=== PATIENT | female | born 1995 | race Hispanic/Latino ===

== ENCOUNTER 2019-03-09 19:10 | Observation (INO) | payer BC ==
[2019-03-09] MEDS ORDERED: Tdap Vaccine 0.5 ml Vial (10-64 yrs) IM ONE ×2 (19:22→19:30)
[2019-03-09] MEDS ORDERED: Povidone Iodine Topical 10% Sol ONE (19:38)
--- NOTE | 2019-03-09 20:08 | ED PDOC ---
HPI: Wound Care - HPI Time Seen by Provider: 03/09/19 19:22 Chief Complaint (Nursing): Abnormal Skin Integrity Chief Complaint (Provider): Abnormal skin integrity History Per: Patient Exam Limitations: no limitations Onset/Duration Of Symptoms: Mins (just prior to arrival) Current Symptoms Are (Timing): Still Present Location Of Injury: Left: Hand Severity: Moderate Additional Complaint(s): 23 year old female with no pertinent past medical history presents to the ED for an evaluation of a left hand laceration that occurred yesterday. Patient states she fell down and landed on a piece of glass that broke upon impact, sustaining a laceration to the left thumb and index finger. Reports having numbness to the L 2nd digit. Denies weakness, foreign body sensation. Tetanus not up to date. PMD: None provided. Past Medical History Reviewed: Historical Data, Nursing Documentation, Vital Signs Vital Signs: Last Vital Signs Temp 98.7 F 03/09/19 19:17 Pulse 64 03/09/19 19:17 Resp 16 03/09/19 19:17 BP 132/80 03/09/19 19:17 Pulse Ox 100 03/09/19 19:17 ASH Report Viewed: Yes - Medical History PMH: No Chronic Diseases - Family History Family History: States: No Known Family Hx - Immunization History Hx Tetanus Toxoid Vaccination: No - Allergies Allergies/Adverse Reactions: Allergies Allergy/AdvReac Type Severity Reaction Status Date / Time No Known Allergies Allergy Verified 03/09/19 19:20 Review of Systems ROS Statement: Except As Marked, All Systems Reviewed And Found Negative Musculoskeletal: Positive for: Other (left hand laceration. (-) foreign body sensation) Neurological: Negative for: Numbness ((-) tingling. ) Physical Exam - Reviewed Nursing Documentation Reviewed: Yes Vital Signs Reviewed: Yes - Physical Exam Appears: Positive for: Well, Non-toxic, No Acute Distress Head Exam: Positive for: ATRAUMATIC, NORMOCEPHALIC Skin: Positive for: Normal Color, Warm, Dry Eye Exam: Positive for: EOMI, Normal appearance, PERRL Neck: Positive for: Normal, Painless ROM, Supple Cardiovascular/Chest: Positive for: Regular Rate, Rhythm Respiratory: Positive for: Normal Breath Sounds Pulses-Radial (L): 2+ Pulses-Radial (R): 2+ Gastrointestinal/Abdominal: Positive for: Soft. Negative for: Tenderness Extremity: Positive for: Other (to the palmar surface of the left second digit: 1.5x cm jagged laceration with surrounding edema. limited range of motion secondary to pain. capillary refill <2 seconds. (-) palpable foreign body; L thumb with superficial flap laceration on distal phalanx) Neurological/Psych: Positive for: Awake, Alert, Oriented (3x) - Laboratory Results Result Diagrams: 03/09/19 20:50 - ECG O2 Sat by Pulse Oximetry: 100 (RA) Pulse Ox Interpretation: Normal Medical Decision Making Medical Decision Makin:22 Initial impression: 23 year old female with a hand laceration Initial plan: * XRay hand left 3 views * adacel 0.5 ml IM * reevaluation Pt. evaluated by Dr. Palacio in ED. Pt. was found to have nerve injury to the L index finger. Arrangements made for OR tomorrow. Ancef, labs, and NPO after midnight at the request of Dr. Palacio. Scribe Attestation: Documented by Marie Ramey, acting as a scribe for Mauri Rodriguez Provider Scribe Attestation: All medical record entries made by the Scribe were at my direction and personally dictated by me. I have reviewed the chart and agree that the record accurately reflects my personal performance of the history, physical exam, medical decision making, and the department course for this patient. I have also personally directed, reviewed, and agree with the discharge instructions and disposition. Disposition - Clinical Impression Clinical Impression: Digital nerve laceration, finger - Patient ED Disposition Is Patient to be Admitted: Yes - Disposition Disposition Time: 20:35 Condition: STABLE
[2019-03-09] MEDS ORDERED: ceFAZolin 2 GM in Sodium Chloride 0.9% 100 ML IVPB STA (20:29)
[2019-03-09] MEDS ORDERED: Lactated Ringer's 1,000 ML IV SCH (20:30)
[2019-03-09] MEDS ORDERED: HYDROmorphone 0.5 mg/0.5 ml ISec IVP PRN (20:41)
--- NOTE | 2019-03-09 21:14 | CP.PCM.HP ---
History of Present Illness - History of Present Illness History of Present Illness: Surgery: Dr. Palacio CC: hand injury HPI: Patient is a 23 y/o female with significant history of tonsillitis on amoxcillin, presents to ER after left hand injury. She reports cutting left index finger and thumb on broken glass yesterday. She noticed from numbness to the index finger. She denies redness, erythema, or drainage from the wounds. She complains of mild pain to the site of injury. Denies f/c/n/v. PMH: tonsillitis PSH: denies Social: denies etoh, tobacco, or drug abuse Present on Admission - Present on Admission Any Indicators Present on Admission: No Review of Systems - Constitutional Constitutional: absent: Anorexia, Chills, Fever - EENT Eyes: absent: Blurred Vision, Change in Vision Nose/Mouth/Throat: absent: Sinus Pain, Sinus Pressure - Cardiovascular Cardiovascular: absent: Chest Pain, Dyspnea - Respiratory Respiratory: absent: Cough, Wheezing - Gastrointestinal Gastrointestinal: absent: Abdominal Pain, Vomiting - Genitourinary Genitourinary: absent: Hematuria, Pyuria - Integumentary Integumentary: Wounds - Neurological Neurological: Paresthesias (L index finger). absent: Loss of Vision, Tingling - Psychiatric Psychiatric: absent: Anxiety, Depression - Endocrine Endocrine: absent: Polyphagia, Polyuria - Hematologic/Lymphatic Hematologic: absent: Easy Bleeding, Easy Bruising Meds Allergies/Adverse Reactions: Allergies Allergy/AdvReac Type Severity Reaction Status Date / Time No Known Allergies Allergy Verified 03/09/19 19:20 Physical Exam - Constitutional Appears: Well, Non-toxic, No Acute Distress - Head Exam Head Exam: ATRAUMATIC, NORMOCEPHALIC - Eye Exam Eye Exam: EOMI, Normal appearance - ENT Exam ENT Exam: Mucous Membranes Moist - Respiratory Exam Respiratory Exam: NORMAL BREATHING PATTERN. absent: Respiratory Distress - Cardiovascular Exam Cardiovascular Exam: REGULAR RHYTHM. absent: Tachycardia - Expanded Upper Extremities Exam Left General: laceration (left index and thumb ) Neurosensory exam: absent: ulnar nerve intact (on L index finger) Vascular exam: radial pulse, ulnar pulse, normal capillary refill - Neurological Exam Neurological exam: Alert, Oriented x3 - Psychiatric Exam Psychiatric exam: Normal Affect, Normal Mood - Skin Skin Exam: Dry, Normal Color, Warm Results - Vital Signs Recent Vital Signs: Last Vital Signs Temp 98.7 F 03/09/19 19:17 Pulse 64 03/09/19 19:17 Resp 16 03/09/19 19:17 BP 132/80 03/09/19 19:17 Pulse Ox 100 03/09/19 20:49 - Labs Result Diagrams: 03/09/19 20:50 03/09/19 22:52 Assessment & Plan - Assessment and Plan (Free Text) Assessment: 23 y/o female w/ laceration to left index finger and thumb with digital nerve injury Plan: -numbness on ulnar aspect of Left index finger -wound explored, irrigated and partial repair in ER, no foreign bodies but evidence of nerve damage -plan for OR for further exploration and nerve repair -NPO -IVF -Ancef 2gm Q 8hr -tetanus if not up to date -left hand elevation -pain control -d/w Dr. Hakeem Roa PGY4
[2019-03-09 21:26] LABS: BASO % 0.5 % (0.0-2.0); EOS # 0.2 K/uL (0.0-0.7); EOS % 2.4 % (0.0-4.0); HEMOGLOBIN 12.8 g/dL (12.0-16.0); LYMPH # 3.1 K/uL (1.0-4.3); LYMPH % 41.8 % (20.0-40.0); MEAN CELL VOLUME 86.7 fl (81.0-99.0); MEAN CORPUSCULAR HEMOGLOBIN 28.7 pg (27.0-31.0); MEAN CORPUSCULAR HGB CONC 33.2 g/dL (33.0-37.0); MEAN PLATELET VOLUME 7.7 fl (7.2-11.7); MONO # 0.7 K/uL (0.0-0.8); MONO % 9.4 % (0.0-10.0); NEUT # 3.4 K/uL (1.8-7.0); NEUT % 45.9 % (50.0-75.0); NRBC % 0.1 % (0.0-0.0); RBC 4.45 Mil/uL (3.80-5.20); RED CELL DISTRIBUTION WIDTH 13.8 % (11.5-14.5); WHITE BLOOD COUNT 7.3 K/uL (4.8-10.8)
[2019-03-09] MEDS ORDERED: Dextrose 5%/Lactated Ringer's 1,000 ML IV SCH (21:30)
[2019-03-09 21:38] LABS: PROTHROMBIN TIME 11.3 Seconds (9.8-13.1)
[2019-03-09 21:41] LABS: PARTIAL THROMBOPLASTIN TIME 30.4 Seconds (25.6-37.1)
[2019-03-09 23:21] LABS: ALB/GLOB RATIO 1.3 (1.0-2.1); ALBUMIN 4.9 g/dL (3.5-5.0); ALT/SGPT 35 U/L (9-52); AST/SGOT 48 U/L (14-36); BLOOD UREA NITROGEN 17 mg/dl (7-17); CALCIUM 9.6 mg/dL (8.4-10.2); GFR NON-AFRICAN AMERICAN > 60
[2019-03-10] MEDS ORDERED: ceFAZolin 2 GM in Sodium Chloride 0.9% 100 ML IVPB SCH ×2 (01:00→05:00)
--- NOTE | 2019-03-10 08:24 | RAD ---
Date of service: 03/09/2019 PROCEDURE: Left Index finger radiographs. HISTORY: possible FB COMPARISON: None. TECHNIQUE: AP radiograph of the left hand, as well as spot oblique and lateral images of index finger were obtained. 4 views obtained. FINDINGS: LEFT INDEX FINGER: No acute fracture or destructive bony lesion identified. Remainder of left hand appears unremarkable as imaged. JOINTS: Normal. SOFT TISSUES: Normal. OTHER FINDINGS: None. IMPRESSION: Normal left index finger radiographs.
[2019-03-10] MEDS ORDERED: Bupivacaine 0.5% Inj(30mL) ONE (10:04)
[2019-03-10] MEDS ORDERED: Lidocaine 2% w Epi 1:100,000 Inj IJ ONE (10:25)
[2019-03-10] MEDS ORDERED: Bupivacaine HCl 0.5% PF (10 ml) Inj ONE (10:25)
[2019-03-10] MEDS ORDERED: Midazolam 2 MG/2 ML VIAL ONE (10:29)
[2019-03-10] MEDS ORDERED: Propofol 10 mg/ml Inj (20 ML) ONE (11:00)
[2019-03-10] MEDS ORDERED: Dexamethasone 4 mg/1 ml IVP PRN (11:55)
--- NOTE | 2019-03-10 11:58 | PCM.ANESB4 ---
Infraclavicular Block - Femoral Nerve Block Date of Procedure: 03/10/19 Anesthesiologist: Juvenal Pre-Procedure Diagnosis: Left index finger injury Post-Procedure Diagnosis: Same Procedure Performed: Brachial Plexus at the Infraclavicular area Left - Procedure Infraclavicular Block: The procedure was explained to the patient that it is for the post-operative pain management. Consent was obtained after a thorough discussion with the patient regarding the benefits and possible complications of local anesthetic block of the brachial plexus at the infraclavicular area. The patient was brought to the operating room and standard monitors were applied. Time-out was held with the circulating nurse to confirm the correct surgery and the appropriate block. After applying oxygen by nasal cannula and administering IV Sedation, patient's head was gently rotated away from the operative ____left____ shoulder and the area medial to the coracoid process and inferior to the clavicle was carefully palpated. The ultrasound transducer was then applied to the skin in the transverse plane and the brachial plexus was visualized surrounding the axillary artery and deep to the pectoralis major and minor muscles. After thorough identification, this area was prepped with Betadine solution three times and 1 % Lidocaine was injected subcutaneously for topical anesthesia. At this point, a #21 gauge Stimuplex 4-inch needle was inserted cephalad to the ultrasound transducer and inferior to the clavicle in-plane towards the posterior aspect of the axillary artery. Needle advancement was performed carefully under ultrasound visualization. Nerve stimulator was used and twitch of the affected extremity including fingers, hand, wrist and elbow was obtained at current of __0.4___MA. After repeated negative aspiration, __20___cc of __2___% lidocaine was injected and this was followed with __10____ cc of ____.5___ % ____bupivacaine . Under ultrasound guidance the local anesthetics were observed surrounding the cords of the brachial plexus. The needle was removed intact and sterile dressing was applied. The patient had stable vital signs, was conscious and in no apparent distress. The patient tolerated the infraclavicular block of the brachial plexus well with stable vital signs was prepared for subsequent surgery.
--- NOTE | 2019-03-10 12:08 | PCM.SURG1 ---
Surgeon's Initial Post Op Note - Surgeon's Notes Surgeon: Dr. Palacio Employee Benefits Manager: Dr. Montiel, PGY 1 Type of Anesthesia: Block Regional (left infraclavicular) Pre-Operative Diagnosis: left index finger radial nerve injury Operative Findings: left index finger radial nerve partial tear Post-Operative Diagnosis: left index finger radial nerve partial tear Operation Performed: left index finger radial nerve injury repair and nerve tube placement Specimen/Specimens Removed: none Estimated Blood Loss: EBL {In ML}: 0 Blood Products Given: N/A Drains Used: No Drains Post-Op Condition: Good Date of Surgery/Procedure: 03/10/19 Time of Surgery/Procedure: 10:30
[2019-03-10 12:28] VITALS: RESP 18
[2019-03-10 16:21] VITALS: BP 116/65; PULSE 84; TEMP 98.4; O2SAT 97
--- NOTE | 2019-03-11 21:59 | OP ---
PROCEDURE DATE: 03/10/2019 PREOPERATIVE DIAGNOSES: 1. Left index finger radial digital nerve laceration. 2. Possible left index finger ulnar digital nerve laceration. 3. Possible left index finger flexor tendon laceration. POSTOPERATIVE DIAGNOSES: 1. Left index finger radial digital nerve laceration. 2. Possible left index finger ulnar digital nerve laceration. 3. Possible left index finger flexor tendon laceration. PROCEDURES PERFORMED: 1. Repair of left index finger radial digital nerve with use of nerve tube. 2. Debridement of skin and soft tissue, thumb and left index finger. 3. Neurolysis or exploration of left index finger ulnar digital nerve. SURGEON: Alex Palacio MD ALLIANCES CONSULTANT: Ingrid Montiel DPM TYPE OF ANESTHESIA: Regional with IV sedation: 1. Left infraclavicular nerve block. 2. Left index finger radial digital nerve block. 3. Left index finger ulnar digital nerve block. ANESTHESIA ADMINISTERED BY: Zina Sanford MD INDICATIONS FOR PROCEDURE: This is a 23-year-old female who presented to the emergency room yesterday with two open wounds at the left index finger and left thumb. I explored her left index finger in the emergency room yesterday. It showed that there was radial digital nerve injury as well as open wounds at the thumb, which I closed with a flap and I closed the left index finger as well. The patient was admitted overnight with IV antibiotics and arm elevation. Today, the plan was to take the patient to the operating room for exploration of the left index finger and repair of the digital nerve, possible nerves and flexor tendons under regional anesthesia. Risks and benefits of the operation including, but not limited to infection, stiffness, need for splinting, need for prolonged therapy, possible need for future operations or permanent numbness was discussed with the patient and her mother and all questions were answered. DESCRIPTION OF PROCEDURE: As follows, the patient was taken to the operating room and placed under regional anesthesia after IV antibiotics were given. SCDs were placed on bilateral lower extremities. The patient was given a left infraclavicular nerve block by Anesthesia. Left upper extremity was prepped and draped in the usual clean and sterile manner. I exsanguinated the arm with an Esmarch bandage, inflated the tourniquet. Total tourniquet time for the case was 39 minutes. I started the operation by removing the sutures placed in the left index finger. We had to make the incision exact manner with a #15-blade. We debrided some of the skin that was macerated with scissor technique and then, we used 4-0 nylon retracting sutures. We then explored the finger. We went down. The flexor tendon sheath was not violated on passive flexion. The FDP and tendons were completely intact. With microdissecting instruments, we dissected out the radial digital nerve. It was about 70% lacerated and we dissected out the ulnar digital nerve, which was completely uninvolved. We then irrigated the wound thoroughly and then, we debrided some of the edges of the epineurium of the radial digital nerve and then with an 8-0 nylon, we did epineural repair. We then fortified the repair with a nerve tube to prevent neuromas. We used a nerve connector AxoGuard, lot number [id number], exploration 2019, reference #[id number] and then, we fortified the repair with this nerve tube and secured in place with 8-0 nylon sutures under loop magnification. We then irrigated the wound and closed the skin in interrupted fashion with 4-0 chromic sutures, Xeroform, dry sterile dressing, Jefferson wrap was placed and then, we placed a fabricated and secured a volar splint with the left index and middle fingers with the wrist at 10 degrees extended and the index and middle fingers flexed 60 degrees at the MCPs and the IP slightly flexed. Before the case ended, I used 5 mL of 0.5% Marcaine for postop analgesia to left index finger radial ulnar digital nerve block. The patient then awoke from anesthesia, shoulder sling was placed, transferred to recovery room in stable condition. FINDINGS: As above. SPECIMEN: None. COMPLICATIONS: None. CONDITION: Stable. DRAINS: Nerve tube left in. Alex Palacio MD
--- NOTE | 2019-03-12 08:37 | CON ---
DATE: 03/08/19 EMERGENCY ROOM CONSULTATION SURGEON: Alex Palacio MD HISTORY OF PRESENT ILLNESS: This is a 23-year-old right-hand dominant female who presented to the emergency room with two open wounds of her left hand as well as complaining of numbness of the left index finger radial volar side. I was consulted by the emergency room staff for possible nerve injury and these open wounds. So, I came in emergently to see the patient in the emergency room. X-ray done by the emergency room staff did not show any retained foreign bodies or any fractures. On physical exam, the patient had two wounds. On the left thumb, there was a 1 x 1 cm area of skin avulsion with nonviable skin with intact underlying pulp tissue. The left thumb radial and volar aspects were intact to sensation. She was able to flex and extend her thumb indicating intact flexor pollicis longus and extensor pollicis longus tendons. There was good capillary refill to the finger. On the left index finger, there was a 2-cm laceration over the PIP joint that was slightly macerated. The patient had decreased sensation on the radial aspect, volar aspect of the left index finger and a little bit of decreased sensation in the left index finger ulnar aspect and the volar aspect. She was able to flex and extend the DIP and PIP joints relatively normally indicating grossly intact FDP and FDS tendons. There was good capillary refill. The extensor surfaces of all fingers were uninvolved. There were no signs of any infection. The patient had a positive Tinel sign to striking the left index finger PIP joint that went distally and she had decreased sensation to tactile stimulation in the left index finger radial aspect. I explained to the patient and her mother that she likely has a nerve injury, I would explore the left index finger in the emergency room to confirm my diagnosis. She also had two open wounds that needed closure. I told her on the left thumb she is missing skin, I would have to do a local flap to get it closed, the skin will be a little tight but it will stretch with time. Risks and benefits were fully discussed. I will now dictate a separate operative report. Alex Palacio MD [facility] # [id number]
--- NOTE | 2019-03-12 08:44 | OP ---
PROCEDURE DATE: 03/10/19 SURGEON: Alex Palacio MD PREOPERATIVE DIAGNOSES: As follows: 1. A 1.1-cm skin avulsion of left thumb volar aspect. 2. Left index finger 2-cm laceration at the proximal interphalangeal joint. 3. Possible left index finger ulnar digital nerve laceration. POSTOPERATIVE DIAGNOSES: As follows: 1. A 1.1-cm skin avulsion of left thumb volar aspect. 2. Left index finger 2-cm laceration at the proximal interphalangeal joint. 3. Possible left index finger ulnar digital nerve laceration. PROCEDURES PERFORMED: As follows: 1. Exploration of penetrating wound of left index finger. 2. Local tissue rearrangement 1.5 sq cm of left thumb wound closure. ANESTHESIA: Regional: 1. Left thumb radial digital nerve block. 2. Left thumb ulnar digital nerve block. 3. Left index finger radial digital nerve block. 4. Left index finger ulnar digital nerve block. INDICATIONS FOR PROCEDURE: As follows: Please refer to my separately dictated ER consultation for the history and physical. I forgot to mention two things that the patient's mechanism of injury was a glass was broken at her hand. An x-ray did not show any foreign bodies or fractures despite as I warned the patient and her mother that they could be a retained foreign body either that shows up clinically or on radiographic studies in the future if they become symptomatic, at that time may need to be addressed. The patient also has had strep throat for about four days and has been treated with amoxicillin. DESCRIPTION OF THE PROCEDURE: As follows: Marcaine 0.5% was used in the left thumb and left index finger. Regional nerve block as listed above. After allowing sufficient time for the anesthetic to take effect, the hand was soaked in normal saline and dilute Betadine for several minutes. The area was prepped and draped in the usual clean and sterile manner. I started the operation in the left thumb. I placed a tourniquet at the base of the left thumb which I removed at the end of the case. I started the operation by debriding the skin that was nonviable. After doing this, I 1 x 1 cm stellate open wound down to the level of pulp tissue. I then made a back cut with #15 blade, and I did a 1.5 cm local tissue rearrangement while we were entering the skin and closing it with 4-0 chromic and interrupted suture to get wound closure. I left the small area opened in the middle and front to allow for drainage. I then removed the tourniquet and placed in the left index finger. I debrided the skin edges. I made the incision larger with the scissor. I used 4-0 nylon tacking sutures. I did exploration of the penetrating wound in the left index finger. The radial digital nerve was about 75% lacerated. The flexor tendons appeared grossly intact. I then closed the skin with 4-0 chromic in an interrupted fashion. I removed the tourniquet. I placed Xeroform, dry sterile dressing, Jefferson wrap. The patient was then admitted since it was late at night, and the patient recently aid to go to the operating room emergently the following day for full exploration of the left index finger as well as the repair of the digital nerve and possible flexor tendon. The patient was then admitted to my service with IV antibiotics with arm elevated. I will now dictate a separate operative report. Alex Palacio MD [facility]
== END 2019-03-10 18:00 | disposition home or self-care (01) ==
LOC: H.ER 19:10 → H.ERHOLD 20:37 → H.MEDSURG1 23:35
PROVIDERS: ADMIT Surgery; ATTEND Surgery
DX: S64.22XA Injury of radial nerve at wrist and hand level of left arm, initial encounter (principal); S61.012A Laceration without foreign body of left thumb without damage to nail, initial encounter; S61.211A Laceration without foreign body of left index finger without damage to nail, initial encounter; W01.110A Fall on same level from slipping, tripping and stumbling with subsequent striking against sharp glass, initial encounter; Z23 Encounter for immunization; Y92.9 Unspecified place or not applicable
CPT/HCPCS: 14040; 36415; 64415; 64702; 64727; 73140; 80053; 81025; 84703; 85025; 85610; 85730; 86850; 86900; 90471; 90715; 96365; 99284; G0378; J0690; J2250; J2405; J2704; J3010; J7030; J7120